=== PATIENT | female | born 1940 | race Caucasian/White ===

== ENCOUNTER 2017-01-05 08:23 | Inpatient (IN) | payer OTHER, BC ==
[~2017-01-05] VITALS: Ht 165.1 cm; Wt 77.2 kg
[~2017-01-05 08:23] MED LIST: ACETAMINOPHN-T1 EACH PO; ADVAIR HFA120 INHAL1 IH; ADVIL200 MG PO; AUGMENTIN875 MG PO; BIOTIN 5000MCG PO; CALCIUM 600 MG1 EACH PO; CALCIUM600 M1 PO; COMBIVENT RESPIM4 GM IH; DIFLUCAN150 MG PO; ESTRACE42.5 GM VG; FISH OIL 1,0001 EAC7 PO; FISH OIL 1,2001 EAC4 PO; LEVAQUIN500 MG PO; LO-DOSE ASPIRIN81 M2 PO; LORATADINE10 M2 PO; MUCINEX DM ER1 EACH PO; NASACORT AQ16.5 GM BOTH NARES; NASACORT10.8 ML BOTH NARES; NASONEX17 GM BOTH NARES; PEPCID40 MG PO; PREDNISONE10 MG PO; SYSTANE 0.3-0.1 EACH BOTH EYES; VITAMIN C1000 MG PO; ZYRTEC10 M3 PO
[2017-01-05 10:34] VITALS: BP 128/54
[2017-01-05 17:24] VITALS: BP 176/72
[2017-01-05 17:44] LABS: HEMATOCRIT 41.8 % (36.0-46.0); MCH 28.1 PG (29.0-34.0); MCHC 32.8 G/DL (30.0-36.0); MCV 85.8 FL (83-99); RBC DIS.WIDTH-CV 11.9 % (11.8-14.6); RBC DIS.WIDTH-SD 37.8 % (39-53); RED BLOOD COUNT 4.87 M/uL (3.80-5.20); WHITE BLOOD COUNT 13.2 K/uL (4.1-10.2)
[2017-01-05 18:09] LABS: ANION GAP 8 MEQ/L (2-14); CHLORIDE 107 MEQ/L (99-109); GFR ESTIMATE (CALCULATED) > 59 mL/min/; GLUCOSE 180 mg/dL (70-99); POTASSIUM 4.4 MEQ/L (3.7-5.4); SAMPLE HEMOLYSIS CHECK 0; SAMPLE ICTERIC CHECK 0; SAMPLE LIPEMIA CHECK 0; SODIUM 137 MEQ/L (136-147); UREA NITROGEN (BUN) 16 mg/dL (9-23)
[2017-01-05 18:25] LABS: MEAN PLAT.VOLUME 11.7 uM^3 (9.5-12.4); PLAT.SUFFICIENCY ADEQUATE; PLATELET COUNT 223 K/uL (156-360)
[2017-01-05 20:43] VITALS: BP 154/66
[2017-01-06] VITALS (7 sets, daily range): BP systolic 137–166; BP diastolic 66–75
[2017-01-06 06:50] LABS: HEMATOCRIT 38.5 % (36.0-46.0); MCH 28.2 PG (29.0-34.0); MCV 85.6 FL (83-99); MEAN PLAT.VOLUME 11.6 uM^3 (9.5-12.4); PLATELET COUNT 217 K/uL (156-360); RBC DIS.WIDTH-CV 11.9 % (11.8-14.6); RBC DIS.WIDTH-SD 37.5 % (39-53); WHITE BLOOD COUNT 13.7 K/uL (4.1-10.2)
[2017-01-06 07:16] LABS: ANION GAP 7 MEQ/L (2-14); CHLORIDE 107 MEQ/L (99-109); GFR ESTIMATE (CALCULATED) > 59 mL/min/; GLUCOSE 129 mg/dL (70-99); POTASSIUM 4.1 MEQ/L (3.7-5.4); SAMPLE HEMOLYSIS CHECK 0; SAMPLE ICTERIC CHECK 0; SAMPLE LIPEMIA CHECK 0; SODIUM 139 MEQ/L (136-147); UREA NITROGEN (BUN) 13 mg/dL (9-23)
[2017-01-07 03:37] VITALS: BP 159/70
[2017-01-07 06:46] LABS: HEMATOCRIT 42.8 % (36.0-46.0); MCHC 31.8 G/DL (30.0-36.0); MCV 88.1 FL (83-99); MEAN PLAT.VOLUME 11.9 uM^3 (9.5-12.4); PLATELET COUNT 244 K/uL (156-360); RBC DIS.WIDTH-SD 39.1 % (39-53); RED BLOOD COUNT 4.86 M/uL (3.80-5.20); WHITE BLOOD COUNT 14.6 K/uL (4.1-10.2)
[2017-01-07 07:11] LABS: ANION GAP 10 MEQ/L (2-14); CHLORIDE 104 MEQ/L (99-109); GFR ESTIMATE (CALCULATED) > 59 mL/min/; GLUCOSE 103 mg/dL (70-99); POTASSIUM 4.4 MEQ/L (3.7-5.4); SAMPLE HEMOLYSIS CHECK 0; SAMPLE ICTERIC CHECK 0; SAMPLE LIPEMIA CHECK 0; SODIUM 141 MEQ/L (136-147); UREA NITROGEN (BUN) 18 mg/dL (9-23)
[2017-01-07 08:06] VITALS: BP 163/70
[2017-01-07] MEDS ORDERED: TRAMADOL HCL50 MG PO (09:15)
[2017-01-07] MEDS ORDERED: ZOFRAN ODT4 MG PO (09:15)
== END 2017-01-07 13:06 | disposition home or self-care (01) | DRG 983 ==
LOC: 2SOUTH 08:23 → 2EAST 15:59
PROVIDERS: Obstetrics & Gynecology Gynecologic Oncology
DX: D21.5 Benign neoplasm of connective and other soft tissue of pelvis (principal); N83.9 Noninflammatory disorder of ovary, fallopian tube and broad ligament, unspecified; K21.9 Gastro-esophageal reflux disease without esophagitis; F17.210 Nicotine dependence, cigarettes, uncomplicated; M79.7 Fibromyalgia; R50.9 Fever, unspecified
CPT/HCPCS: 36415; 80048; 85027; 86850; 86900; 86901; 86920; 88307; 94799; J0330; J0690; J1100; J1170; J1650; J2270; J2405; J2550; J2710; J2765; J3010